=== PATIENT | female | born 1990 | race Caucasian/White ===

== ENCOUNTER → 2020-03-13 10:53 | Outpatient (BNVA) | payer OTHER, SELFPAY | PROVIDERS: Visit Provider Nurse Practitioner | DX: J30.2 Other seasonal allergic rhinitis (principal); J02.9 Acute pharyngitis, unspecified; J01.90 Acute sinusitis, unspecified | CPT/HCPCS: 87071; 87880 ==

== ENCOUNTER 2020-10-31 09:43 | Outpatient (CLI) | payer OTHER, SELFPAY ==
--- NOTE | 2020-10-31 11:00 | US_ITS ---
WS: [id number] ULTRASOUND BREAST RIGHT TECHNIQUE: Ultrasound right breast focused area of concern. CLINICAL INFORMATION: N63.10 - Unspecified lump in the right breast, unspecifie... COMPARISON: None. FINDINGS: Ultrasound right breast at the 12:00 position and right axilla in the areas of concern. Dense underly ing parenchymal tissue in the right breast. Hypoechoic well-circumscribed lesion in the 12:00 positio n with through transmission consistent with incidental cyst measuring 5.1 x 4.0 mm. Possible biopsy c lip is visualized. No suspicious lesions to target for biopsy. Normal right axilla. Recommend annual screening mammography age 40. IMPRESSION: No suspicious abnormalities. Recommend annual screening mammography age 40.
== END 2020-10-31 09:44 | disposition home or self-care (01) ==
LOC: RAD 09:47
PROVIDERS: Visit Provider Obstetrics & Gynecology
DX: N63.10 Unspecified lump in the right breast, unspecified quadrant (principal)
CPT/HCPCS: 76642

== ENCOUNTER → 2021-02-06 14:26 | Outpatient (BNVA) | payer OTHER, SELFPAY | PROVIDERS: Visit Provider Nurse Practitioner Women's Health | DX: N92.6 Irregular menstruation, unspecified (principal) | CPT/HCPCS: 81025 ==

== ENCOUNTER 2021-02-16 01:03 | Emergency (ER) | payer OTHER, SELFPAY ==
[2021-02-16 01:07] VITALS: BP 101/69; PULSE 93; RESP 19; TEMP 36.9; O2SAT 99; BMI 22.8
--- NOTE | 2021-02-16 01:26 | W.ED.PREGNAN ---
HPI - General: Chief complaint: Abdominal Pain Stated complaint: 6 Weeks Preg, ABD Pain N\V Time Seen by Provider: 02/16/21 01:21 History of Present Illness: HPI Narrative: Patient complains about nausea and vomiting and mild abdominal cramping since 0 600. Patient denies fever chills urinary frequency. Patient took pzdq-lwd-lqzxhdr medicine as per OBs instruction. Has not helped. Patient denies any vaginal bleeding or discharge. No problems with previous . MD Complaint: other (Nausea vomiting cramping) Onset (ago): hour(s) Pain Consistency: constant Location: abdomen Severity: mild Quality: Cramping Relieving factors: none Vaginal discharge: none Vaginal bleeding: none Patient : Yes OB History - Current : no complications OB History - Previous Pregnancies: no complications care: followed by OB Associated symptoms: Reports no associated symptoms, nausea and vomiting; Deny abdominal pain or headache(s) Review of Systems Const: Denies: fever(s), chills or body aches Eyes: Denies: change in vision or blurry vision ENMT: Denies: throat pain or nasal congestion Card: Denies: chest pain or dyspnea on exertion Resp: Denies: dyspnea, productive cough or non-productive cough GI: Reports: nausea, vomiting and GI cramping; Denies: abdominal pain Musc: Denies: extremity pain Skin/Breast: Denies: rash Neuro: Denies: headache(s) Psych: Denies: anxiety or depression Price/Lymph: Denies: easy bruising PFSH ED PFSH: Medical History (Updated 02/16/21 @ 02:17 by DEVORA Mckeon) Axillary lymphadenitis Lump of right breast No pertinent past medical history neghx: htn,dm,thyroid,dvt/pe PCP: None Surgical History (Updated 02/06/21 @ 15:20 by Jessica Ruiz APN, PATRICK) H/O breast biopsy (~2017) Benign right breast-- lump with marker placed H/O section 2015-- FTP 2018-- Repeat but emergent due to PTL and NRFHR H/O lithotripsy S/P cholecystectomy Family History Mother Diabetes Hyperlipidemia Hypertension Grandmother Hyperlipidemia maternal Hypertension maternal Stroke maternal great grandmother Heart disease maternal Breast cancer maternal great, onset 60's Uterine cancer maternal--dx age 50's Family/Other Uterine cancer maternal aunt--dx age 30's Breast cancer maternal great aunt, 30's Denies family history of Colon cancer Ovarian cancer Thyroid condition Social History Smoking and tobacco status: never smoked Alcohol intake: current Alcohol intake frequency: holidays/special occasions only Alcohol type: wine Physical Exam Const: COMMON NORMALS: no acute distress, average body habitus and patient oriented x3 HENMT: COMMON NORMALS: normocephalic HEAD & SCALP: normal to inspection and normocephalic FACE & SINUS: normal facial exam Eye: COMMON NORMALS: conjunctivae normal GENERAL EYE: appearance normal, both eyes and all related structures CONJUNCTIVA: Yes conjunctivae normal Neck/C-Spine: COMMON NORMALS: no JVD Chest: COMMONS NORMALS: normal inspection of the chest Resp: COMMON NORMALS: normal respiratory effort Cardio: COMMON NORMALS: no JVD GI: COMMON NORMALS: Normal to inspection, nondistended, normoactive bowel sounds present Extremity: COMMON NORMALS: normal to inspection and full ROM Neuro: COMMON NORMALS: patient oriented x3 Course Vital Signs: Vital signs: Vital Signs Temperature 98.5 F 02/16/21 01:07 Pulse Rate 70 02/16/21 05:14 Respiratory Rate 18 02/16/21 05:14 Blood Pressure 111/59 02/16/21 05:14 Pulse Oximetry 99 02/16/21 05:14 MDM - OB/Uterine Contractions MDM Narrative: Medical decision making narrative: Patient 6 weeks . No history of bleeding or discharge. Patient have not some abdominal cramping and nausea and vomiting. Patient was given Reglan tolerated very well tolerated fluids well felt much better by the end of the visit. Patient encouraged to follow-up with Dr. Rasheed tomorrow can follow-up here if needed. Lab Data: Labs: Lab Results 02/16/21 01:45 Urine Color Yellow (Yellow) Urine Appearance Clear (CLEAR) Urine pH 5 (5-7) Ur Specific Gravit y 1.025 (1.005-1.030) Urine Protein Neg (Negative) Urine Glucose (UA) Norm (Normal) Urine Ketones 2+ H (Negative) Urine Blood Neg (Negative) Urine Nitrate Negative (Negative) Urine Bilirubin Neg (Negative) Urine Urobilinogen Norm mg/dL mg/dL (Negative) Ur Leukocyte Saray ase Negative (Negative) Discharge Plan Discharge Patient Disposition: Home Clinical Impression: Nausea and vomiting during Condition: Stable Prescriptions: New Reglan 5 mg tablet 5 mg PO TID PRN (Reason: nausea and vomiting) Qty: 10 RF: 0 No Action Gummies 400 mcg-35 mg- 25 mg-5 mg tablet,chewable PO RF: 0 Discharge Orders: Discharge ED (Routine); Ordered 02/16/21 Ordered By: Dani Smyth Discharge Diet: Advance as tolerated Discharge Activity: Increase activity as tolerated Patient Instructions: Nausea and Vomiting in (ED) Activity Restrictions/Additional Instructions: Follow-up with medical provider as directed. Take medications as prescribed. Return to the ER or your medical provider if condition worsens. Please read and understand discharge instructions. If any questions ask please. Coding Level of Care Code ED Gas Compressor Turbine Operator for Manjeet Fwd Exam Comprehensive
[2021-02-16] MEDS: metoclopramide 5 mg/mL SDV 2 mL IVP ×2 (01:46→03:27)
[2021-02-16] MEDS: sodium chloride 0.9% 1,000 ML 999 ML IV ×2 (01:46→03:20)
[2021-02-16 01:48] LABS: Add Urine Microscopic? NO; Charge for UA Resulting for Rev
[2021-02-16 02:13] LABS: Bilirubin Urine Neg (Negative); Blood Urine Neg (Negative); Glucose Urine UA Norm (Normal); Ketones Urine 2+ (Negative); Leukocyte Esterase Urine Negative (Negative); Nitrate Urine Negative (Negative); Protein Urine Neg (Negative); Specific Gravity, Urine 1.025 (1.005-1.030); Urine Appearance Clear (CLEAR); Urine Color Yellow (Yellow); Urobilinogen Urine Norm (Negative); pH Urine 5 (5-7)
[2021-02-16] MEDS: diphenhydrAMINE 50 mg/mL SDV 1mL 25 MG IVP (03:30)
[2021-02-16 03:41] VITALS: BP 122/75; PULSE 74; RESP 17; O2SAT 98
[2021-02-16 04:00] VITALS: BP 123/59; PULSE 82; RESP 16; O2SAT 99
[2021-02-16 05:14] VITALS: BP 111/59; PULSE 70; RESP 18; O2SAT 99
== END 2021-02-16 05:10 | disposition home or self-care (01) ==
PROVIDERS: Emergency Provider Nurse Practitioner Family
DX: O26.891 Other specified pregnancy related conditions, first trimester (principal); R11.2 Nausea with vomiting, unspecified; Z3A.01 Less than 8 weeks gestation of pregnancy
CPT/HCPCS: 81003; 96361; 96374; 96375; 96376; 99284; J1200; J2765; J7030

== ENCOUNTER → 2021-03-12 15:20 | Outpatient (BNVA) | payer OTHER, SELFPAY | PROVIDERS: Visit Provider Obstetrics & Gynecology | DX: O09.899 Supervision of other high risk pregnancies, unspecified trimester (principal) | CPT/HCPCS: 80307; 84315; 85027; 86592; 86762; 86803; 86850; 86900; 87086; 87340 ==

== ENCOUNTER → 2021-03-27 09:34 | Outpatient (BNVA) | payer OTHER, SELFPAY | PROVIDERS: Visit Provider Obstetrics & Gynecology | DX: O09.899 Supervision of other high risk pregnancies, unspecified trimester (principal) | CPT/HCPCS: 84315; 87491; 87591; 88175 ==

== ENCOUNTER → 2021-05-22 08:06 | Outpatient (BNVA) | payer OTHER, SELFPAY | PROVIDERS: Visit Provider Obstetrics & Gynecology | DX: O09.899 Supervision of other high risk pregnancies, unspecified trimester (principal); Z3A.00 Weeks of gestation of pregnancy not specified | CPT/HCPCS: 76805 ==

== ENCOUNTER → 2021-06-21 08:38 | Outpatient (BNVA) | payer SELFPAY | PROVIDERS: Visit Provider Obstetrics & Gynecology | DX: O09.899 Supervision of other high risk pregnancies, unspecified trimester (principal); Z3A.00 Weeks of gestation of pregnancy not specified | CPT/HCPCS: 82950; 84315 ==

== ENCOUNTER → 2021-07-16 12:04 | Outpatient (BNVA) | payer SELFPAY | PROVIDERS: Visit Provider Obstetrics & Gynecology | DX: O09.899 Supervision of other high risk pregnancies, unspecified trimester (principal) | CPT/HCPCS: 81000; 85027 ==

== ENCOUNTER 2021-08-07 17:05 | Outpatient (CLI) | payer MEDICAID, SELFPAY ==
[2021-08-07] VITALS (12 sets, daily range): BP systolic 78–120; BP diastolic 41–82; PULSE 85–117; RESP 16–17; TEMP 36.8; BMI 26.7
[2021-08-07] MEDS: dextrose 5%-lactated ringers 1,000 ML 999 ML IV ×2 (18:27→19:44)
[2021-08-07] MEDS: ondansetron 2 mg/ML SDV 2 mL 4 MG IVP (18:28)
[2021-08-07 18:47] LABS: Add Urine Microscopic? YES; Bilirubin Urine Neg (Negative); Blood Urine Neg (Negative); Glucose Urine UA Norm (Normal); Ketones Urine 1+ (Negative); Leukocyte Esterase Urine Negative (Negative); Nitrate Urine Negative (Negative); Protein Urine Neg (Negative); Specific Gravity, Urine 1.015 (1.005-1.030); Sulfosalicylic Acid Urine Negative (Negative); Urine Appearance Cloudy (CLEAR); Urine Color Yellow (Yellow); Urobilinogen Urine Neg (Negative); pH Urine 8 (5-7)
[2021-08-07 18:48] LABS: Add Urine Culture? No; Amorphous Sediment Urine 4+ /hpf; RBC Urine RARE /hpf (0-2); Squamous Epithelial Cell Urine RARE /hpf (0-5); WBC Urine RARE /hpf (0-5)
== END 2021-08-07 21:08 | disposition home or self-care (01) ==
LOC: OPOB 17:07 → OBGYN 17:08
PROVIDERS: Visit Provider Obstetrics & Gynecology
DX: O26.899 Other specified pregnancy related conditions, unspecified trimester (principal); Z3A.00 Weeks of gestation of pregnancy not specified; R10.9 Unspecified abdominal pain
CPT/HCPCS: 36415; 81001; 99211; J2405

== ENCOUNTER 2021-08-25 19:40 | Outpatient (CLI) | payer MEDICAID, SELFPAY ==
[2021-08-25 19:47] VITALS: BMI 28.5
[2021-08-25 19:49] VITALS: BP 139/76; PULSE 116
[2021-08-25 19:53] VITALS: RESP 16
[2021-08-25 20:05] VITALS: BP 105/61; PULSE 106
[2021-08-25] MEDS: sodium chloride 0.9% 1,000 ML 999 ML IV (20:15)
[2021-08-25 20:17] LABS: Bilirubin Urine Neg (Negative); Blood Urine Neg (Negative); Glucose Urine UA Norm (Normal); Ketones Urine Negative (Negative); Leukocyte Esterase Urine Negative (Negative); Nitrate Urine Negative (Negative); Protein Urine Neg (Negative); Specific Gravity, Urine 1.005 (1.005-1.030); Urine Appearance Clear (CLEAR); Urine Color Straw (Yellow); Urobilinogen Urine Norm (Negative); pH Urine 7 (5-7)
[2021-08-25 20:20] VITALS: BP 110/70; PULSE 101
[2021-08-25 20:29] LABS: Add Urine Culture? No; Bacteria Urine TRACE /hpf; RBC Urine 0-4 /hpf (0-2); Squamous Epithelial Cell Urine 0-4 /hpf (0-5); WBC Urine 0-4 /hpf (0-5)
[2021-08-25 20:39] VITALS: BP 108/68; PULSE 100
[2021-08-25 20:50] VITALS: BP 106/59; PULSE 99
[2021-08-25] MEDS: cyclobenzaprine 10 mg Tablet 5 MG PO (21:01)
== END 2021-08-25 21:04 | disposition home or self-care (01) ==
LOC: OPOB 19:43 → OBGYN 19:45
PROVIDERS: Visit Provider Obstetrics & Gynecology
DX: O26.899 Other specified pregnancy related conditions, unspecified trimester (principal); Z3A.00 Weeks of gestation of pregnancy not specified; R10.9 Unspecified abdominal pain
CPT/HCPCS: 59025; 81001; 99211; J7030

== ENCOUNTER → 2021-08-27 10:45 | Outpatient (BNVA) | payer MEDICAID, SELFPAY | PROVIDERS: Visit Provider Obstetrics & Gynecology | DX: O09.899 Supervision of other high risk pregnancies, unspecified trimester (principal); Z3A.00 Weeks of gestation of pregnancy not specified | CPT/HCPCS: 81000 ==

== ENCOUNTER → 2021-09-10 13:12 | Outpatient (BNVA) | payer MEDICAID, SELFPAY | PROVIDERS: Visit Provider Obstetrics & Gynecology | DX: O09.899 Supervision of other high risk pregnancies, unspecified trimester (principal); Z3A.00 Weeks of gestation of pregnancy not specified | CPT/HCPCS: 81000; 85025; 87081 ==

== ENCOUNTER 2021-09-11 15:40 | Outpatient (CLI) | payer MEDICAID, SELFPAY ==
[2021-09-11] VITALS (43 sets, daily range): BP systolic 93–118; BP diastolic 58–71; PULSE 88–114; O2SAT 96–100; BMI 28.3
[2021-09-11 17:44] LABS: Basophils % 0.2 %; Eosinophils # 0.1 10^3/uL (0.0-0.8); Eosinophils % 0.5 %; Hematocrit 29.4 % (37.0-47.0); Hemoglobin 9.2 g/dL (11.5-15.3); Lymphocytes % 19.3 %; Mean Corpuscular HGB Conc 31.3 g/dL (30.0-36.0); Mean Corpuscular Hemoglobin 25.8 pg (28.0-34.0); Mean Corpuscular Volume 82.6 fl (81-99); Mean Platelet Volume 11.8 fL (7.4-10.4); Monocytes # 0.7 10^3/uL (0.2-0.9); Monocytes % 6.4 %; Neutrophils # 7.58 10^3/uL (1.8-7.7); Neutrophils % 72.9 %; Nucleated Red Blood Cells % 0 %; Platelet Count 143 10^3/cmm (130-400); Red Blood Count 3.56 10^6/uL (4.1-5.3); Red Cell Distribution Width 14.6 % (12.1-15.1); White Blood Count 10.4 10^3/uL (4.0-10.0)
[2021-09-11] MEDS: lactated ringers 1,000 ML 125 ML IV (17:50)
[2021-09-11 18:53] LABS: Alanine Aminotransferase 11 U/L (0-33); Albumin Level 3.4 g/dL (3.5-5.2); Alkaline Phosphatase 104 IU/L (35-105); Blood Urea Nitrogen 5 mg/dL (6-20); Calcium 7.7 mg/dL (8.5-10.5); Carbon Dioxide 18 mmol/L (22-29); Chloride 105 mmol/L (98-107); Globulin 2.4 g/dL (1.3-4.6); Glomerular Filtration Rate 188.7 mL/min (90-130); Glucose 107 mg/dL (65-115); Osmolality Calculated 278 mOsm/kg (285-295); Sodium 135 mmol/L (136-145); Total Bilirubin 0.2 mg/dL (0.15-1.2); Total Protein 5.8 g/dL (6.6-8.7)
[2021-09-11 18:54] LABS: Anion Gap 15.6 (5-19); Aspartate Amino Transferase 27 U/L (0-32); Potassium 3.6 mmol/L (3.5-5.1)
== END 2021-09-11 19:10 | disposition home or self-care (01) ==
LOC: OPOB 15:43 → OBGYN 15:44
PROVIDERS: Visit Provider Obstetrics & Gynecology
DX: O26.899 Other specified pregnancy related conditions, unspecified trimester (principal); Z3A.00 Weeks of gestation of pregnancy not specified; R42 Dizziness and giddiness
CPT/HCPCS: 36415; 59025; 80053; 85025; 99211

== ENCOUNTER → 2021-09-17 10:39 | Outpatient (BNVA) | payer MEDICAID, SELFPAY | PROVIDERS: Visit Provider Obstetrics & Gynecology | DX: O09.899 Supervision of other high risk pregnancies, unspecified trimester (principal); R42 Dizziness and giddiness; Z3A.00 Weeks of gestation of pregnancy not specified | CPT/HCPCS: 81000; 85027 ==

== ENCOUNTER 2021-09-22 02:49 | Outpatient (CLI) | payer MEDICAID, SELFPAY ==
[2021-09-22 03:00] VITALS: BP 102/67; PULSE 111
[2021-09-22 03:01] VITALS: TEMP 36.1
[2021-09-22] MEDS: dextrose 5%-lactated ringers 1,000 ML 999 ML IV ×2 (03:13→04:04)
[2021-09-22] MEDS: ondansetron 2 mg/ML SDV 2 mL 4 MG IVP (03:13)
[2021-09-22 03:23] VITALS: BMI 28.8
[2021-09-22 03:26] VITALS: RESP 16; TEMP 36.1
[2021-09-22 05:42] VITALS: BP 118/65; PULSE 101
== END 2021-09-22 05:45 | disposition home or self-care (01) ==
LOC: OPOB 02:56 → OBGYN 02:56
PROVIDERS: Visit Provider Obstetrics & Gynecology
DX: O21.9 Vomiting of pregnancy, unspecified (principal); Z3A.00 Weeks of gestation of pregnancy not specified
CPT/HCPCS: 36415; 59025; 96374; 99211; J2405

== ENCOUNTER 2021-09-24 13:15 | Outpatient (CLI) | payer MEDICAID, SELFPAY ==
[2021-09-24] VITALS (10 sets, daily range): BP systolic 108–117; BP diastolic 59–72; PULSE 94–108; RESP 17; BMI 27.4
[2021-09-24] MEDS: dextrose 5%-lactated ringers 1,000 ML 999 ML IV ×2 (14:35→15:35)
== END 2021-09-24 16:50 | disposition home or self-care (01) ==
LOC: OPOB 13:20 → OBGYN 13:24
PROVIDERS: Visit Provider Obstetrics & Gynecology
DX: O26.899 Other specified pregnancy related conditions, unspecified trimester (principal); Z3A.00 Weeks of gestation of pregnancy not specified; R10.9 Unspecified abdominal pain
CPT/HCPCS: 36415; 59025; 84315; 99211

== ENCOUNTER → 2021-10-01 11:27 | Outpatient (BNVA) | payer MEDICAID, SELFPAY | PROVIDERS: Visit Provider Obstetrics & Gynecology | DX: O09.899 Supervision of other high risk pregnancies, unspecified trimester (principal); Z3A.00 Weeks of gestation of pregnancy not specified | CPT/HCPCS: 81000 ==

== ENCOUNTER 2021-10-03 04:11 | Inpatient (IN) | payer MEDICAID, SELFPAY ==
--- NOTE | 2021-09-28 09:49 | ANES.PREANE2 ---
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 BP dropped low and she was put on a drip, but first was drip Social No alcohol and No tobacco Exam alert, oriented x 3, clear to auscultation bilaterally and regular rate & rhythm Airway Mallampati: Class II Dentition: other (implants) Pulmonary Asthma CV/HEM None reported None reported Hepatic None reported GI Gastroesophageal Reflux Disease [facility]/skel None reported Neuropsych None reported Anesthetic Plan ASA status: 2 Anesthesia: Regional (specify below) Risk of > 500 ml blood loss (7ml/kg in children): No Medications/Allergies Home Medications Medication Instructions Recorded Confirmed Last Taken Type PNV 153-FA 400 mcg-om3 35 mg-dha 1 tab PO DAILY 02/06/21 09/24/21 09/21/21 History 25 mg-epa 5 mg-fish oil chew tablet ( Gummies) doxylamine succinate 25 mg tablet 25 mg PO Q6H PRN 03/07/21 09/24/21 09/21/21 History (Unisom (doxylamine)) famotidine 20 mg tablet (Pepcid) 20 mg PO .at hs tab 03/27/21 09/24/21 09/21/21 History pyridoxine (vitamin B6) 25 mg 25 mg PO .at hs tab 03/27/21 09/24/21 09/21/21 History tablet Allergies Allergy/AdvReac Type Severity Reaction Status Date / Time peach Allergy Severe ALGY-Anaphy Verified 09/24/21 10:30 laxis [facility] Anesthesia Medical History Axillary lymphadenitis Lump of right breast No pertinent past medical history neghx: htn,dm,thyroid,dvt/pe PCP: None Surgical History H/O breast biopsy (~2016) Benign right breast-- lump with marker placed H/O section 2015-- FTP 2018-- Repeat but emergent due to PTL and NRFHR H/O lithotripsy S/P cholecystectomy Family History Mother Diabetes Hyperlipidemia Hypertension Grandmother Hyperlipidemia maternal Hypertension maternal Stroke maternal great grandmother Heart disease maternal Breast cancer maternal great, onset 60's Uterine cancer maternal--dx age 50's Family/Other Uterine cancer maternal aunt--dx age 30's Breast cancer maternal great aunt, 30's Denies family history of Colon cancer Ovarian cancer Thyroid condition Data Anesthesia Cardiac Studies: No Data to Display
[2021-10-03] VITALS (28 sets, daily range): BP systolic 91–124; BP diastolic 51–72; PULSE 75–140; RESP 14–40; TEMP 35.9–36.9; O2SAT 99–100; BMI 27.8
[2021-10-03 04:50] LABS: Basophils % 0.3 %; Eosinophils # 0.1 10^3/uL (0.0-0.8); Hematocrit 29.7 % (37.0-47.0); Hemoglobin 9.2 g/dL (11.5-15.3); Lymphocytes # 2.4 10^3/uL (0.8-4.8); Lymphocytes % 17.5 %; Mean Corpuscular Hemoglobin 25.1 pg (28.0-34.0); Mean Corpuscular Volume 81.1 fl (81-99); Mean Platelet Volume 11.1 fL (7.4-10.4); Monocytes # 0.8 10^3/uL (0.2-0.9); Monocytes % 5.9 %; Neutrophils # 10.39 10^3/uL (1.8-7.7); Neutrophils % 74.5 %; Nucleated Red Blood Cells % 0 %; Platelet Count 176 10^3/cmm (130-400); Red Blood Count 3.66 10^6/uL (4.1-5.3); Red Cell Distribution Width 15.5 % (12.1-15.1); White Blood Count 13.9 10^3/uL (4.0-10.0)
[2021-10-03] MEDS: lactated ringers 1,000 ML 999 ML IV (04:50)
[2021-10-03] MEDS: metoclopramide 5 mg/mL SDV 2 mL 10 MG IVP (05:47)
[2021-10-03] MEDS: citric acid-sodium citrate 30 mL UDC PO (05:50)
--- NOTE | 2021-10-03 05:54 | W.PM.OPSUD ---
Surgery/Procedure H&P Update DATE OF PROCEDURE: October 03, 2021 DATE H&P PERFORMED: 10/01/21 H&P UPDATE INFORMATION: I have reviewed H&P completed within last 30 days, I have examined patient prior to procedure and No changes to prior documentation PLANNED PROCEDURE: Operation Date: 10/03/21 06:00 Proposed Procedures p Section Repeat With Tubal 78780/o43.219/z30.2(Bilateral) - Don Rasheed MD
--- NOTE | 2021-10-03 07:43 | PM.OP ---
Operative Report Date of procedure: October 03, 2021 Pre-op diagnosis: Term . Previous delivery. Desire permanent sterilization Post-op diagnosis: Same as above Procedure done: Repeat low transverse delivery. Bilateral partial salpingectomy Specimens removed/disposition: Left and right fallopian tube segments Pathology: Left and right fallopian tube segments Surgeon: Don Rasheed MD Estimated blood loss (mL): 800 IV fluids (mL): 1,000 Urine output (mL): 600 Complications: None Procedure: After assuring informed consent, the patient was taken to the operating room and anesthesia was initiated. She was placed in the dorsal supine position with a left lateral tilt. The abdomen was prepped and draped in the usual sterile manner. A time-out procedure was performed. A Pfannenstiel skin incision was made with the scalpel and carried through to the underlying layer of fascia with the Bovie. The fascia was nicked in the midline and the incision extended laterally with the David scissors. The superior aspect of the fascial incision was then grasped with Rene clamps and elevated and the underlying rectus muscle dissected off bluntly and sharp with david scissors dense adhesions. Attention was then turned to the inferior aspect of the incision which, in similar fashion, was grasped and tented up with Rene clamps and the rectus muscle dissected bluntly. The rectus muscles were then in the midline and the peritoneum identified, tented up and entered sharply with Metzenbaum scissors. The peritoneal incision was then extended superiorly and inferiorly with good visualization of the bladder. The Shantanu O retractor was then inserted and the vesicouterine peritoneum identified, grasped with pickups and entered sharply with Metzenbaum scissors. This incision was then extended laterally and the bladder flap created digitally. The uterus incised in a low transverse fashion with the scalpel. The uterine incision was then extended with the bandage scissors. The was then delivered in the cephalic presentation atraumatically. The nose and the mouth were suctioned with bulb and the cord clamped and cut. The cord was normal and had three vessels. Amniotic fluid was clear. The placenta was then removed manually and the uterus exteriorized and cleared of all clots and debris. The uterine incision was repaired with 0 Vicryl in a running-locked fashion. A second layer of the same suture was used to obtain excellent hemostasis. The gutters were cleared of all clots. The left fallopian tube was identified and grasped with a Jkai clamp. The tube was then followed out to the fimbria. An avascular midsection of the fallopian tube was grasped with a Jaki clamp and and using the Voyant scissor device the tube was clamped, sealed and transected. The specimen was sent to pathology. Excellent hemostasis was noted. The same procedure was performed on the opposite fallopian tube. The uterus was then returned to the abdomen. The rectus muscles were approximated with 3-0 chromic gut. The ON-Q pain management system placed. The fascia was reapproximated with 0 Vicryl in an interrupted running fashion. The skin was closed with Insorb?s subcuticular absorbable emory. The patient tolerated the procedure well. The sponge, lap and needle counts were correct times three.
--- NOTE | 2021-10-03 08:18 | ANES.PROC ---
Anesthesia Procedures Procedure/Date: 10/03/21 Other Information: Asked by Doctor Clark to assist with difficult spinal placement. Patient in sitting position. Full monitors. Cap, mask donned by all staff present. Sterile prep by, drape, 1% lidocaine skin wheel by Doctor Clark. Introducer. 25 g Pencan, + birefringence, no heme, 0.75% bupivacaine injected. 2 attempts by myself. Very well tolerated by patient. Laid supine, uterine displacement. VSS. Good block. Operative care/anesthetic by Doctor Clark.
[2021-10-03] MEDS: ketorolac 30 mg/mL INJ IVP ×3 (08:42→21:19)
[2021-10-03] MEDS: dextrose 5%-lactated ringers 1,000 ML 125 ML IV ×2 (08:43→15:50)
--- NOTE | 2021-10-03 09:06 | ANE.PACU2 ---
Inpatient post-anesthesia follow up: Airway intact: Yes Vital signs: Temperature 96.6 F Pulse Rate 108 Respiratory Rate 17 Blood Pressure 107/70 Pulse Oximetry Oxygen Delivery Me thod Room Air Oxygen Flow Rate Fraction of Inspir ed Oxygen Hydration adequate: Yes Nausea and vomiting: No Pain level: 3 Mental status: Baseline
[2021-10-03] MEDS: ferrous sulfate EC 325 mg Tablet PO (17:16)
[2021-10-03] MEDS: docusate sodium 100 mg Capsule PO (17:16)
[2021-10-03] MEDS: acetaminophen 325 mg Tablet 650 MG PO (17:16)
[2021-10-03] MEDS: ondansetron 2 mg/ML SDV 2 mL 4 MG IVP (17:25)
[2021-10-03 21:55] LABS: Hematocrit 28.3 % (37.0-47.0); Hemoglobin 8.6 g/dL (11.5-15.3); Mean Corpuscular HGB Conc 30.4 g/dL (30.0-36.0); Mean Corpuscular Hemoglobin 25.2 pg (28.0-34.0); Mean Platelet Volume 10.9 fL (7.4-10.4); Platelet Count 171 10^3/cmm (130-400); Red Blood Count 3.41 10^6/uL (4.1-5.3); Red Cell Distribution Width 15.5 % (12.1-15.1); White Blood Count 15.9 10^3/uL (4.0-10.0)
[2021-10-04] VITALS (7 sets, daily range): BP systolic 91–106; BP diastolic 54–68; PULSE 79–90; RESP 16–18; TEMP 36.8; O2SAT 96–99
[2021-10-04] MEDS: ketorolac 30 mg/mL INJ IVP (01:35)
--- NOTE | 2021-10-04 08:08 | P.PN_ITS ---
Subjective Subjective: Mrs. Cox 31 year old status post repeat low transverse delivery and bilateral partial salpingectomy day 1. Referred headache when standing up. Vitals/I&O/Wt Last Vital Signs Temp 98.2 F 10/04/21 09:52 Pulse 82 10/05/21 03:15 Resp 16 10/05/21 03:15 BP 96/53 10/05/21 03:15 Pulse Ox 96 10/05/21 03:15 10/04/21 10/05/21 10/05/21 22:59 06:59 14:59 Output Total 1000 / 1300 Balance -1000 / -1300 Physical Exam Narrative: GA; alert and oriented x 3 HEENT: normal Breasts: engorged Nipples - skin intact Lungs; clear to auscultation Heart: regular rhythm, no murmurs. Abd: Appropriately tender. BS+. Uterine fundus below umbilicus. No Fundal Tenderness minimal tenderness, incision clean and dry, no redness, pain or edema. Perineum: normal lochia. Extremities: no edema, no cyanosis, no tenderness. Urinary Catheter Management: Espinoza: Cath Placed During This Visit: yes, but has since been removed by the nurse Reason for Continuing Indwelling Catheter: Decision to DC Catheter Urinary Catheter Date of Insertion: 10/03/21 Urinary Catheter Time of Insertion: 06:40 Date Urinary Catheter Removed: 10/04/21 Time Urinary Catheter Discontinued: 04:30 Data : 10/03/21 21:48 A&P Assessment and plan (1) Status post delivery: Mrs. Bocanegra is status post repeat low transverse delivery and bilateral partial salpingectomy postoperative day 1. She is afebrile and hemodynamically stable. Referring headaches when she is stands up. Most likely due to spinal headache. Anesthesia will be contacted for consult. She is tolerating diet well. She is afebrile and hemodynamically stable. Passing flatus.. Status: Acute Plan Continue postop observation. Consult anesthesia for spinal headache. Attestations Medical Necessity Statement*: In my professional opinion per admitting diagnosis Coding Level of Care Code Acute Weights And Measures Inspector for Chg Fwd Diagnoses Status post delivery Z98.891
--- NOTE | 2021-10-04 08:21 | PC.NURSE ---
Patient complaining of severe headache when patient is sitting up or standing. Patient states that her headache gets better when she is lying flat. Dr Rasheed was notified and he states we can consult anesthesia for a possible spinal headache
[2021-10-04] MEDS: ferrous sulfate EC 325 mg Tablet PO ×2 (09:10→20:45)
[2021-10-04] MEDS: docusate sodium 100 mg Capsule PO ×2 (09:10→20:45)
[2021-10-04] MEDS: prenatal vitamin Capsule 1 CAP PO (09:11)
[2021-10-04] MEDS: ibuprofen 800 mg tablet PO ×3 (09:20→20:45)
--- NOTE | 2021-10-04 10:56 | P.ANES_ITS ---
Anesthesia Procedures Procedure/Date: 10/04/21 Epidural: Time Out Performed: Yes Consents Signed: Procedure Consent Consent: requested by attending/covering physician, from patient, risks and benefits reviewed and patient agrees to proceed Lumbar Level: L2-L3 Epidural position: sitting Epidural procedure: sterile prep of area A dditional Comments: 20 cc of sterile-blood injected with immediate abatement of headache Other Information: Patient complaining of classic PDPH, nausea, head, and neck pain with upright position, relieved with recumbency. Symptoms refractory to non-invasive treatment. Discussed options to include - waiting for self resolu tion of headache, aminophylline only, or proceeding with epidural blood patch. Patient elected for blood patch. Aminophylline IV given for comfort during epidural blood patch positioning.
--- NOTE | 2021-10-04 10:57 | PC.NURSE ---
1045 Dr Freeman at bedside performing blood patch. Once procedure was complete patient was laid down flat and blood pressure cuff and oxygen probe was applied to patient for recovery. Patient states that she has already got some relief.
--- NOTE | 2021-10-04 15:23 | PC.NURSE ---
[address] Freeman at bedside for blood patch procedure. RN put on sterile gloves and patients arm was draped with sterile towels. Patients arm then cleaned with sterile chloprep, once Dr Freeman had epidural in place patients IV was started and blood was drawn in sterile fashion from left AC space with 18 G Iv catheter, 15ml of blood was drawn and handed to Dr Freeman to be placed in epidural space. Once procedure was over patient was placed in bed in flat position and blood pressure cuff and pulse ox was applied to patient.
--- NOTE | 2021-10-04 21:51 | PC.NURSE ---
This RN entered room and observed in the crib, propped on a boppy pillow and covered with a loose blanket. This RN educated mother on safe sleep, firm, flat sleep surface, no soft blankets, pillows or stuffed animals, infant placed on their back. Educated mother on the danger of slipping down into a chin to chest position and being unable to breathe. The mother stated she would be careful but the infant had been spitting up. Mother and father were both awake and watching infant at this time.
[2021-10-05] MEDS: alum-mag-hydroxide-sime 30 mL UDC PO (00:21)
[2021-10-05] MEDS: acetaminophen 325 mg Tablet 650 MG PO (03:12)
[2021-10-05 03:15] VITALS: BP 96/53; PULSE 82; RESP 16; O2SAT 96
--- NOTE | 2021-10-05 08:19 | P.DS_ITS ---
Discharge Providers APPLICATIONS SUPPORT SPECIALIST Date of Admission: 10/03/21 04:11 Date of Discharge: 10/05/21 Attending Provider at Admission: Don Rasheed MD Attending Provider at Discharge: Don Rasheed MD Primary APPLICATIONS SUPPORT SPECIALIST: Don Rasheed MD Diagnoses at Discharge Discharge Diagnosis (1) Status post delivery: Status: Acute Reason for Visit Reason for Visit: C Section Hospital Course Hospital Course Mrs. Castro 31 year old with term IUP admitted for planned repeat delivery and bilateral partial salpingectomy. The procedures were performed without complication. Postop/ observation recovery significant for spinal headache which was resolved after anesthesia dated blood patch. She is afebrile hemodynamically stable postoperative day 2. Tolerating diet well. Ambulating without difficulty. Information Peripartum Data: Infant Delivery Method: Physical Exam Narrative: GA; alert and oriented x 3 HEENT: normal Breasts: engorged Nipples - skin intact Lungs; clear to auscultation Heart: regular rhythm, no murmurs. Abd: Appropriately tender. BS+. Uterine fundus below umbilicus. No Fundal Tenderness minimal tenderness, incision clean and dry, no redness, pain or edema. Perineum: normal lochia. Extremities: no edema, no cyanosis, no tenderness. Urinary Catheter Management: Espinoza: Cath Placed During This Visit: yes, but has since been removed by the nurse Reason for Continuing Indwelling Catheter: Decision to DC Catheter Urinary Catheter Date of Insertion: 10/03/21 Urinary Catheter Time of Insertion: 06:40 Date Urinary Catheter Removed: 10/04/21 Time Urinary Catheter Discontinued: 04:30 History History History 3 Term 1 Miscarriages/Ectopic 0 1 Living Children 2 Discharge Data Studies Completed and Pending Pending at discharge Category Date Time Status Pathology: Surgical [PTH] Routine Pth 10/03/21 10:28 Received Laboratory Results WBC 15.9 10^3/uL (4.0-10.0) H 10/03/21 21:48 Corrected WBC Cancelled 10/03/21 21:30 RBC 3.41 10^6/uL (4.1-5.3) L 10/03/21 21:48 Hgb 8.6 g/dL (11.5-15.3) L 10/03/21 21:48 Hct 28.3 % (37.0-47.0) L 10/03/21 21:48 MCV 83.0 fl (81-99) 10/03/21 21:48 MCH 25.2 pg (28.0-34.0) L 10/03/21 21:48 MCHC 30.4 g/dL (30.0-36.0) 10/03/21 21:48 RDW 15.5 % (12.1-15.1) H 10/03/21 21:48 Plt Count 171 10^3/cmm (130-400) 10/03/21 21:48 MPV 10.9 fL (7.4-10.4) H 10/03/21 21:48 Neut % (Auto) 74.5 % 10/03/21 04:36 Lymph % (Auto) 17.5 % 10/03/21 04:36 [place] % (Auto) 5.9 % 10/03/21 04:36 Eos % (Auto) 1.0 % 10/03/21 04:36 Baso % (Auto) 0.3 % 10/03/21 04:36 Neut # (Auto) 10.39 10^3/uL (1.8-7.7) H 10/03/21 04:36 Lymph # (Auto) 2.4 10^3/uL (0.8-4.8) 10/03/21 04:36 [place] # (Auto) 0.8 10^3/uL (0.2-0.9) 10/03/21 04:36 Eos # (Auto) 0.1 10^3/uL (0.0-0.8) 10/03/21 04:36 Baso # (Auto) 0.0 10^3/uL (0.0-0.1) 10/03/21 04:36 Nucleated RBC % (auto) 0 % 10/03/21 04:36 Nucleated RBCs # 0.0 /100WBC 10/03/21 04:36 Vitals Last Vital Signs Temp 98.2 F 10/04/21 09:52 Pulse 82 10/05/21 03:15 Resp 16 10/05/21 03:15 BP 96/53 10/05/21 03:15 Pulse Ox 96 10/05/21 03:15 Discharge Plan Discharge Patient Disposition: Home Condition: Stable Prescriptions: New hydrocodone-acetaminophen 5-325 mg tablet 1 tab PO Q4H PRN (Reason: pain) Qty: 30 0RF docusate sodium [Colace] 100 mg capsule 100 mg PO BID Qty: 60 0RF ferrous sulfate [Iron (ferrous sulfate)] 325 mg (65 mg iron) tablet 325 mg PO BID Qty: 60 0RF acetaminophen 325 mg capsule 325 mg PO Q4H PRN (Reason: fever or pain) Qty: 60 0RF ibuprofen 800 mg tablet 800 mg PO TID PRN (Reason: pain) Qty: 60 0RF Continued Gummies 400 mcg-35 mg- 25 mg-5 mg tablet,chewable 1 tab PO DAILY 0RF Unisom (doxylamine) 25 mg tablet 25 mg PO Q6H PRN (Reason: Nausea) 0RF famotidine [Pepcid] 20 mg tablet 20 mg PO .at hs 0RF pyridoxine (vitamin B6) 25 mg tablet 25 mg PO .at hs 0RF ProAir HFA 2 puff inhalation PRN PRN (Reason: Shortness Of Breath Or Wheezing) 0RF Discharge Orders: Discharge Order (Routine); Ordered 10/05/21 Ordered By: Don Rasheed Referrals: Don Rasheed MD [Physician] - 10/16/21 9:15 am Discharge Diet: Usual diet Discharge Activity: Limit activity as instructed Patient Instructions: Depression (DC), Bleeding (DC), Preeclampsia and Eclampsia After Delivery (GEN), OB [facility], OB Discharge Report, OB Food/Drug Interaction Guide, OB Care at Home, Opioid Safety Activity Restrictions/Additional Instructions: 1. Please call [facility] on next working day to make your post-operative appointment in 2 weeks. 2. Please stay home until you come back to the clinic on first post-operative check up. 3. Please follow instructions on your medications CAREFULLY. 4. If you have abdominal incision, do not cover it unless dressing is necessary because of drainage. OK to shower, but avoid bath. Leave steri-strips until they fall off. If they are still on one week after surgery, you may remove them. 5. If you had vaginal surgery or vaginal repair, Dr. Rasheed may instruct you to take SITZ bath. 6. Yellow, blood tinged odorous vaginal discharge is usually normal after hysterectomy or vaginal surgeries. 7. No sexual intercourse, tampons, or douches until you are completely released from the post-operative care. 8. Avoid constipation by eating right and maybe using some Metamucil or Milk of Magnesia. 9. All prescription refills are given during the working hours. Please do no wait till it runs out. Call the clinic at [phone] before your medication runs out. The clinic will get in touch with your doctor to prescribe medications if necessary. 10. Please remain within 40 mile radius from our hospital because emergencies do happen now and then during the post-operative period. 11. If you have stairs at home, take one step at a time slowly and minimize the number of trips. It helps to stay in one floor for the next few days. No lifting except what you can lift by one hand until you are released from the post-operative care. 12. Driving is discouraged until you are well healed. It may be 3-4 weeks before you feel strong enough to drive. You should be able to turn and look through the rear window without pain and you should be able to push the brake pedal very hard without pain before you drive. No fast rules, but SAFETY should be your primary concern. DO NOT drive if you are on sedating medications such as narcotics. 13. Call the clinic (during working hours) to make urgent appointment or go to the Emergency room, if any of the following occurs: i. Vaginal bleeding becomes heavy, more than a period. ii. Incision becomes red and sore, or drains pus. iii. Your temperature is over 100.4 or you have chill. iv. IV site becomes red and swollen (a little ``knot?? is usually OK) v. Persistent nausea and vomiting vi. Persistent constipation or diarrhea vii. Rash or allergic reaction to medications. Discharge Attestations APPLICATIONS SUPPORT SPECIALIST Time Spent in Discharge Care*: greater than 30 min Coding Level of Care Code Acute [employer] for Manjeet Mccormack Diagnoses Status post delivery Z98.891
[2021-10-05 09:30] VITALS: BP 104/68; PULSE 99; RESP 16; TEMP 36.8
[2021-10-05] MEDS: ferrous sulfate EC 325 mg Tablet PO (09:30)
[2021-10-05] MEDS: ibuprofen 800 mg tablet PO (09:30)
[2021-10-05] MEDS: prenatal vitamin Capsule 1 CAP PO (09:30)
[2021-10-05] MEDS: docusate sodium 100 mg Capsule PO (09:30)
== END 2021-10-05 10:10 | disposition home or self-care (01) | DRG 785 ==
PROVIDERS: Admitting Provider Obstetrics & Gynecology; Visit Provider Obstetrics & Gynecology
PROC: (CPT 59514; principal; 2021-10-03 06:00)
DX: O34.211 Maternal care for low transverse scar from previous cesarean delivery (principal); N85.8 Other specified noninflammatory disorders of uterus; Z3A.39 39 weeks gestation of pregnancy; Z37.0 Single live birth; Z30.2 Encounter for sterilization; O89.4 Spinal and epidural anesthesia-induced headache during the puerperium; O99.52 Diseases of the respiratory system complicating childbirth; J45.909 Unspecified asthma, uncomplicated; O99.62 Diseases of the digestive system complicating childbirth; K21.9 Gastro-esophageal reflux disease without esophagitis
CPT/HCPCS: 36415; 51702; 58611; 59025; 59409; 62273; 85025; 85027; 88302; 96374; 96376; J0280; J1885; J2274; J2405; J2765; J7030

== ENCOUNTER → 2021-12-24 10:49 | Outpatient (BNVA) | payer SELFPAY | PROVIDERS: Visit Provider Family Medicine | DX: D64.9 Anemia, unspecified (principal) | CPT/HCPCS: 85025 ==